=== PATIENT | male | born 1995 | race Caucasian/White ===

== ENCOUNTER 2017-06-20 12:05 | Emergency (ER) | payer OTHER ==
[2017-06-20 12:09] VITALS: BP 143/70; PULSE 77; RESP 20; TEMP 97.2
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
== END 2017-06-20 12:52 | disposition home or self-care (01) ==
LOC: EC 12:05
DX: S46.911A Strain of unspecified muscle, fascia and tendon at shoulder and upper arm level, right arm, initial encounter (principal); F17.200 Nicotine dependence, unspecified, uncomplicated; V43.52XA Car driver injured in collision with other type car in traffic accident, initial encounter; Y92.410 Unspecified street and highway as the place of occurrence of the external cause
CPT/HCPCS: 99283

== ENCOUNTER 2020-11-13 21:35 | Emergency (ER) | payer OTHER ==
[2020-11-13 21:45] VITALS: BP 138/83; PULSE 118; RESP 20; TEMP 98.1
[2020-11-13] MEDS ORDERED: IBUPROFEN ORAL SUSP 100 MG/5 ML CUP PO ONE (21:57)
[2020-11-13] MEDS ORDERED: ACETAMINOPHEN ORAL SUSP 160 MG/5 ML CUP PO ONE (21:57)
[2020-11-13] MEDS ORDERED: DEXAMETHASONE SOD PHOSPHATE 10 MG/ML 1 ML VIAL IM STA (21:57)
[2020-11-13] MEDS ORDERED: AMOXIC-POT CLAV 875MG STARTER PACK 2 TAB BTL PO STA (23:02)
[2020-11-13] MEDS ORDERED: AMOXIC-POT CLAV 875-125MG 1 EACH TAB PO STA (23:02)
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
== END 2020-11-13 23:16 | disposition other institution (70) ==
LOC: EC 21:35
DX: J02.9 Acute pharyngitis, unspecified (principal); F17.200 Nicotine dependence, unspecified, uncomplicated; F12.90 Cannabis use, unspecified, uncomplicated; F14.90 Cocaine use, unspecified, uncomplicated
CPT/HCPCS: 87081; 87430; 99284; 96372; J1100

== ENCOUNTER 2021-02-16 15:21 | Emergency (ER) | payer OTHER ==
[2021-02-16 15:37] VITALS: BP 149/97; PULSE 81; RESP 17; TEMP 98.2
[2021-02-16] MEDS ORDERED: BACITRACIN OINT 1 EACH PACKET TOPICAL ONE (15:53)
[2021-02-16] MEDS ORDERED: DIPH,PERTUS(ACELL)TETVAC-LF 0.5 ML VIAL IM ONE (15:53)
[2021-02-16] MEDS ORDERED: LIDOCAINE 1% INJ 10MG/ML (20 ML MDV) SQ ONE (15:53)
--- NOTE | 2021-02-16 16:36 | ED ---
Wound/Laceration HPI - General Chief Complaint: Wound/Laceration Stated Complaint: Hand lac Time Seen by Provider: 02/16/21 15:51 Source: patient Mode of arrival: ambulatory Limitations: no limitations - History of Present Illness Initial Comments: Patient is a 25-year-old male presenting to the emergency Department with complaints of a laceration to his left hand. Patient states he was working on siding of a house with a tool he was using accidentally cut him between the webspace of his first and second finger on the left hand. He states his tetanus is not up-to-date. He is not on blood thinners. Bleeding is controlled with a bandage. This happened about an hour prior to arrival. There are no further complaints. - Related Data Previous Rx's Medication Instructions Recorded Amoxic-Pot Clav 875-125Mg 1 tab PO Q12HR #14 tablet 11/13/20 [Augmentin 875-125] Allergies Allergy/AdvReac Type Severity Reaction Status Date / Time No Known Allergies Allergy Verified 02/16/21 15:37 Review of Systems ROS Statement: Those systems with pertinent positive or pertinent negative responses have been documented in the HPI. ROS Other: All systems not noted in ROS Statement are negative. Past Medical History Past Medical History: No Reported History History of Any Multi-Drug Resistant Organisms: None Reported Past Surgical History: Tonsillectomy Past Psychological History: No Psychological Hx Reported Smoking Status: Current every day smoker Past Alcohol Use History: Rare Past Drug Use History: Cocaine, Marijuana General Exam - General Exam Comments Initial Comments: GENERAL: Patient is well-developed and well-nourished. Patient is nontoxic and in no acute distress. HEAD: Atraumatic, normocephalic. LUNGS: Unlabored respirations. Breath sounds clear to auscultation bilaterally and equal. No wheezes rales or rhonchi. HEART: Regular rate and rhythm without murmurs, rubs or gallops. MUSCULOSKELETAL: She has full range of motion of his left hand and fingers, full strength. No clubbing or cyanosis. NEUROLOGICAL: Patient is alert and oriented x 3. SKIN: Warm, Dry, normal turgor, no rashes. He has a 1 cm laceration to the webspace between the first and second digit on the left hand. Bleeding is controlled. Limitations: no limitations Course Vital Signs 02/16/21 15:33 Temperature 98.2 F Pulse Rate 81 Respiratory 17 Rate Blood Pressure 149/97 O2 Sat by Pulse 98 Oximetry Procedures - Laceration Laceration #1 Consent Obtained: verbal consent Indication: laceration Site: hand (Left hand, in between first and second digits webspace) Size (cm): 1 Description: linear Depth: simple, single layer Anesthetic Used: lidocaine 1% Anesthesia Technique: local infiltration Amount (mls): 2 Pre-repair: irrigated extensively Type of Sutures: nylon Size of Sutures: 5-0 Number of Sutures: 3 Technique: simple, interrupted Patient Tolerated Procedure: well Medical Decision Making - Medical Decision Making Patient is a 25-year-old male here with a 1 cm laceration between the web spaces first and second digit on the left hand. We did update his tetanus vaccine today. Patient's wound was cleaned, closed with 3, 5-0 sutures. He tolerated procedure well. He will keep area clean and dry. Stitches need to be removed in 7-10 days. He is in agreement with this plan of care. Case discussed with Dr. Byrd. Disposition Clinical Impression: Laceration of left hand, Laceration Disposition: HOME SELF-CARE Condition: Stable Instructions (If sedation given, give patient instructions): Care For Your Stitches (ED) Additional Instructions: Please return to the Emergency Department if symptoms worsen or any other concerns. Stitches need to be removed in 7-10 days. Keep area covered while working. Is patient prescribed a controlled substance at d/c from ED?: No Referrals: None,Stated [Primary Care Provider] - 1-2 days Time of Disposition: 16:36
== END 2021-02-16 16:44 | disposition home or self-care (01) ==
LOC: EC 15:21
DX: S61.412A Laceration without foreign body of left hand, initial encounter (principal); Z23 Encounter for immunization; F12.90 Cannabis use, unspecified, uncomplicated; F14.90 Cocaine use, unspecified, uncomplicated; W26.8XXA Contact with other sharp object(s), not elsewhere classified, initial encounter; Y92.009 Unspecified place in unspecified non-institutional (private) residence as the place of occurrence of the external cause
CPT/HCPCS: 90715; 99282; 90471; 12001; J2001; 11765

== ENCOUNTER 2021-08-30 23:40 | Emergency (ER) | payer OTHER ==
[2021-08-31 00:25] VITALS: BP 146/85; PULSE 75; RESP 16; TEMP 98
[2021-08-31] MEDS ORDERED: TOPICAL SKIN ADHESIVE 1 EACH AMP TOPICAL ONE (01:13)
--- NOTE | 2021-08-31 01:25 | ED ---
Wound/Laceration HPI - General Stated Complaint: Rt Hand Laceration Time Seen by Provider: 08/31/21 01:07 Source: patient Mode of arrival: ambulatory Limitations: no limitations - History of Present Illness Initial Comments: This is a pleasant 26-year-old right-hand dominant male presents immersed After lacerating his right hand on the lid of a dog food can. Patient states he is up-to-date on tetanus. Injury occurred just prior to arrival. He denies any functional impairment. Patient denies any other injuries. No distress or proximal injuries. No distress or proximal numbness. No foreign body. Patient has no significant past medical history. Denies immunosuppression. - Related Data Previous Rx's Medication Instructions Recorded Amoxic-Pot Clav 875-125Mg 1 tab PO Q12HR #14 tablet 11/13/20 [Augmentin 875-125] Penicillin V Potassium [Pen Vee K] 500 mg PO QID #28 tablet 08/31/21 Allergies Allergy/AdvReac Type Severity Reaction Status Date / Time No Known Allergies Allergy Verified 08/31/21 00:25 Review of Systems ROS Statement: Those systems with pertinent positive or pertinent negative responses have been documented in the HPI. ROS Other: All systems not noted in ROS Statement are negative. Past Medical History Past Medical History: No Reported History History of Any Multi-Drug Resistant Organisms: None Reported Past Surgical History: Tonsillectomy Past Psychological History: No Psychological Hx Reported Smoking Status: Current every day smoker Past Alcohol Use History: Rare Past Drug Use History: Cocaine, Marijuana General Exam - General Exam Comments Initial Comments: Healthy-appearing male in no acute distress. Limitations: no limitations Head exam: Present: atraumatic, normocephalic, normal inspection Eye exam: Present: normal appearance, EOMI ENT exam: Present: normal exam, mucous membranes moist, other (Patient has mild erythema adjacent to tooth #17. No evidence of dental abscess. Airway is patent otherwise. No tonsillar abscess. No intraoral cellulitis. No trismus. No tongue elevation.) Neck exam: Present: normal inspection. Absent: tenderness, meningismus, lymphadenopathy Respiratory exam: Present: normal lung sounds bilaterally. Absent: respiratory distress, wheezes, rales, rhonchi, stridor Cardiovascular Exam: Present: regular rate, normal rhythm, normal heart sounds. Absent: systolic murmur, diastolic murmur, rubs, gallop, clicks Extremities exam: Present: full ROM, normal capillary refill, other (Patient has a 2 cm, superficial flap-like laceration to the palmar aspect of his right hand. No foreign body. This extends just into the subcutaneous tissue. There is no control impairment. Full tendon strength in all tendons in all planes. Full strength in all phalanges, hand, and wrist. ). Absent: tenderness, pedal edema, joint swelling Neurological exam: Present: alert, oriented X3, CN II-XII intact Psychiatric exam: Present: normal affect, normal mood Skin exam: Present: warm, dry, normal color, other (Capillary refill less than 2 seconds. Radial pulses 2+ out of 4.). Absent: rash Course Vital Signs 08/31/21 00:18 Temperature 98.0 F Pulse Rate 75 Respiratory 16 Rate Blood Pressure 146/85 O2 Sat by Pulse 95 Oximetry Procedures - Laceration Laceration #1 Indication: laceration Site: hand Size (cm): 2 Description: linear Depth: simple, single layer Pre-repair: wound explored, irrigated extensively, deep structures intact Type of Sutures: other (Tissue adhesive) Technique: simple, interrupted Patient Tolerated Procedure: well, no complications Medical Decision Making - Medical Decision Making Counseled on wound care. Counseled on adhesive instructions. Counseled on return from fabrics. Patient states she also has a toothache. We will cover with antibiotics for dental pain and prophylaxis. Patient told to follow-up with the dentist. Counseled on smoking cessation. Patient was told to return to the ER for any signs or symptoms worsen. Told to return immediately if any other problems arise. All questions answered. Treatment plan discussed. Patient in agreement No imaging was indicated as to what could be inspected to its without difficulty. There was no foreign body. Disposition Clinical Impression: Laceration of right hand, Pain, dental Disposition: HOME SELF-CARE Condition: Good Instructions (If sedation given, give patient instructions): Skin Adhesive Care (ED), Toothache (ED) Additional Instructions: Follow-up with your regular physician as directed. Return to the ER immediately if any symptoms worsen, new symptoms arise, or any other problems develop. Prescriptions: Penicillin V Potassium [Pen Vee K] 500 mg PO QID #28 tablet Is patient prescribed a controlled substance at d/c from ED?: No Referrals: None,Stated [Primary Care Provider] - 1-2 days Time of Disposition: 01:16
== END 2021-08-31 01:34 | disposition home or self-care (01) ==
LOC: EC 23:40
DX: S61.411A Laceration without foreign body of right hand, initial encounter (principal); K08.89 Other specified disorders of teeth and supporting structures; F17.200 Nicotine dependence, unspecified, uncomplicated; F12.90 Cannabis use, unspecified, uncomplicated; W26.8XXA Contact with other sharp object(s), not elsewhere classified, initial encounter
CPT/HCPCS: 12001; 99282

== ENCOUNTER 2021-11-28 22:40 | Emergency (ER) | payer OTHER ==
[2021-11-28] MEDS ORDERED: SODIUM CHLORIDE 0.9% 1,000 ML IV STA (23:03)
[2021-11-28] MEDS ORDERED: PANTOPRAZOLE 40 MG/10 ML VIAL IVP STA (23:03)
[2021-11-28] MEDS ORDERED: PROCHLORPERAZINE INJ 10 MG/2 ML VIAL IVP STA (23:03)
[2021-11-28] MEDS ORDERED: LORazepam 2 MG/ML INJ IV STA (23:03)
--- NOTE | 2021-11-28 23:04 | ED ---
Overdose HPI - General Stated Complaint: Overdose Time Seen by Provider: 11/28/21 22:54 Source: RN notes reviewed, old records reviewed Limitations: no limitations - History of Present Illness Initial Comments: Is a 26-year-old male. He is today for evaluation overdose this is what he believes maybe a hair 1+ fentanyl overdose he does have a history of heroin abuse for about 8 months now occasionally uses cocaine but has not used cocaine recently. Patient's presenting today for evaluation regards to overdose which at this point was witnessed by family who called EMS. Patient did not lose also became significantly somnolent did require Narcan per EMS patient was given Narcan currently awake and alert. Patient denying any other complaints maybe a little current anxiety. MD Complaint: accidental overdose (Patient was using heroin) -: minutes(s) Intent: unwilling to say How Overdose Was Discovered: family/friend present at time, called 911 Context: Intentional Overdose: drug/ETOH problems Context: Accidental Overdose: wanted to get high Treatments Prior to Arrival: narcan, IV fluids, other medications - Related Data Previous Rx's Medication Instructions Recorded Amoxic-Pot Clav 875-125Mg 1 tab PO Q12HR #14 tablet 11/13/20 [Augmentin 875-125] Penicillin V Potassium [Pen Vee K] 500 mg PO QID #28 tablet 08/31/21 Allergies Allergy/AdvReac Type Severity Reaction Status Date / Time No Known Allergies Allergy Verified 08/31/21 00:25 Review of Systems ROS Statement: Those systems with pertinent positive or pertinent negative responses have been documented in the HPI. ROS Other: All systems not noted in ROS Statement are negative. Past Medical History Past Medical History: No Reported History History of Any Multi-Drug Resistant Organisms: None Reported Past Surgical History: Tonsillectomy Past Psychological History: No Psychological Hx Reported Smoking Status: Current every day smoker Past Alcohol Use History: Rare Past Drug Use History: Cocaine, Marijuana General Exam General appearance: alert, in no apparent distress Head exam: Present: atraumatic, normocephalic, normal inspection Eye exam: Present: normal appearance, PERRL, EOMI. Absent: scleral icterus, con junctival injection, periorbital swelling ENT exam: Present: normal exam, mucous membranes moist Neck exam: Present: normal inspection. Absent: tenderness, meningismus, lymphadenopathy Respiratory exam: Present: normal lung sounds bilaterally. Absent: respiratory distress, wheezes, rales, rhonchi, stridor Cardiovascular Exam: Present: regular rate, normal rhythm, normal heart sounds. Absent: systolic murmur, diastolic murmur, rubs, gallop, clicks GI/Abdominal exam: Present: soft, normal bowel sounds. Absent: distended, tenderness, guarding, rebound, rigid Extremities exam: Present: normal inspection, full ROM, normal capillary refill. Absent: tenderness, pedal edema, joint swelling, calf tenderness Back exam: Present: normal inspection Neurological exam: Present: alert, oriented X3, CN II-XII intact Psychiatric exam: Present: normal affect, normal mood Skin exam: Present: warm, dry, intact, normal color. Absent: rash Course Vital Signs 11/28/21 22:43 Pulse Rate 93 Respiratory 20 Rate Blood Pressure 131/92 O2 Sat by Pulse 95 Oximetry - Reevaluation(s) Reevaluation #1: 11/28/21 23:10 Medical record is reviewed Reevaluation #2: 11/28/21 23:48 Patient has no recurrent rebound Reevaluation #3: 11/28/21 23:48 Patient is awake and alert without significant findings Medical Decision Making - Medical Decision Making 26 male to the emergency department for evaluation patient currently awake and alert, not homicidal or suicidal can be discharged home - EKG Data -: EKG Interpreted by Me (EKG is sinus rhythm 95 FL 155 QRS 97 QTc 416) Disposition Clinical Impression: Accidental drug overdose, Poisoning by opiates and related narcotics, other Disposition: HOME SELF-CARE Condition: Fair Instructions (If sedation given, give patient instructions): Adult Overdose (ED) Is patient prescribed a controlled substance at d/c from ED?: No Referrals: None,Stated [Primary Care Provider] - 1-2 days
[2021-11-29 01:28] VITALS: BP 138/69; PULSE 87; RESP 18; TEMP 97.9
== END 2021-11-29 01:27 | disposition home or self-care (01) ==
LOC: EC 22:40
DX: T40.1X1A Poisoning by heroin, accidental (unintentional), initial encounter (principal); T40.601A Poisoning by unspecified narcotics, accidental (unintentional), initial encounter; F17.200 Nicotine dependence, unspecified, uncomplicated; F14.90 Cocaine use, unspecified, uncomplicated; F12.90 Cannabis use, unspecified, uncomplicated
CPT/HCPCS: 93005; 99284; 96374; 96375 ×2; 96361; J2060; J0780; C9113

== ENCOUNTER 2023-01-10 02:15 | Emergency (ER) | payer OTHER ==
[2023-01-10 02:30] VITALS: RESP 18
[2023-01-10] MEDS ORDERED: KETOROLAC 15 MG/ML 1 ML VIAL IVP STA (02:58)
[2023-01-10] MEDS ORDERED: ONDANSETRON 4 MG/2 ML VIAL IVP STA (02:58)
[2023-01-10] MEDS ORDERED: AMOXIC-POT CLAV 875-125MG 1 EACH TAB PO STA (03:26)
--- NOTE | 2023-01-10 04:06 | ED ---
Overdose HPI - General Chief Complaint: Overdose Stated Complaint: Overdose Time Seen by Provider: 01/10/23 02:36 Source: patient Mode of arrival: ambulatory Limitations: no limitations - History of Present Illness Initial Comments: 27-year-old male presents to emergency department for heroin overdose. He states he used a small amount. Only uses a few times per month. He was found unresponsive by his mom. 3 intranasal Narcan's were administered by his brother, each 2 minutes apart. Patient was attempting to sign off on scene however it was recommended that he be evaluated due to the amount of Narcan that he had to of been given. Patient states that he was using heroin to numb a pain in his tooth. States he's been dealing with toothache for the past several weeks. Denies fevers. No difficulty swelling. Patient does have some vomiting upon hospital arrival. He denies using any other drugs. No alcohol. No other alleviating, precipitating modifying factors - Related Data Previous Rx's Medication Instructions Recorded Amoxic-Pot Clav 875-125Mg 1 tab PO Q12HR #14 tablet 11/13/20 [Augmentin 875-125] Penicillin V Potassium [Pen Vee K] 500 mg PO QID #28 tablet 08/31/21 Amoxic-Pot Clav 875-125Mg 1 tab PO BID 1 Days #20 tab 01/10/23 [Augmentin 875-125] Ibuprofen 600 mg PO Q6H #30 tab 01/10/23 Allergies Allergy/AdvReac Type Severity Reaction Status Date / Time No Known Allergies Allergy Verified 01/10/23 02:30 Review of Systems ROS Statement: Those systems with pertinent positive or pertinent negative responses have been documented in the HPI. ROS Other: All systems not noted in ROS Statement are negative. Past Medical History Past Medical History: No Reported History History of Any Multi-Drug Resistant Organisms: None Reported Past Surgical History: Tonsillectomy Past Psychological History: No Psychological Hx Reported Smoking Status: Current every day smoker Past Alcohol Use History: Rare Past Drug Use History: Cocaine, Heroin, Marijuana General Exam Limitations: no limitations General appearance: alert, in no apparent distress Head exam: Present: atraumatic, normocephalic, normal inspection Eye exam: Present: normal appearance, PERRL, EOMI. Absent: scleral icterus, conjunctival injection, periorbital swelling ENT exam: Present: normal exam, mucous membranes moist Neck exam: Present: normal inspection. Absent: tenderness, meningismus, lymphadenopathy Respiratory exam: Present: normal lung sounds bilaterally. Absent: respiratory distress, wheezes, rales, rhonchi, stridor Cardiovascular Exam: Present: regular rate, normal rhythm, normal heart sounds. Absent: systolic murmur, diastolic murmur, rubs, gallop, clicks GI/Abdominal exam: Present: soft, normal bowel sounds. Absent: distended, tenderness, guarding, rebound, rigid Extremities exam: Present: normal inspection, full ROM, normal capillary refill. Absent: tenderness, pedal edema, joint swelling, calf tenderness Back exam: Present: normal inspection Neurological exam: Present: alert, oriented X3, CN II-XII intact Psychiatric exam: Present: normal affect, normal mood Skin exam: Present: warm, dry, intact, normal color. Absent: rash Course Vital Signs 01/10/23 01/10/23 02:27 04:10 Temperature 98.2 F 97.9 F Pulse Rate 104 H 79 Respiratory 18 18 Rate Blood Pressure 154/109 129/78 O2 Sat by Pulse 100 98 Oximetry Medical Decision Making - Medical Decision Making Was pt. sent in by a medical professional or institution (, PA, HAM MARKER, urgent care, hospital, or shelter...) When possible be specific @ -No Did you speak to anyone other than the patient for history (EMS, parent, family, police, friend...)? What history was obtained from this source @ -EMS, brother Did you review nursing and triage notes (agree or disagree)? Why? @ -I reviewed and agree with nursing and triage notes Were old charts reviewed (outside hosp., previous admission, EMS record, old EKG, old radiological studies, urgent care reports/EKG's, shelter records)? Report findings @ -No old charts were reviewed Differential Diagnosis (chest pain, altered mental status, abdominal pain women, abdominal pain men, vaginal bleeding, weakness, fever, dyspnea, syncope, headache, dizziness, GI bleed, back pain, seizure, CVA, palpatations, mental health, musculoskeletal)? @ -opiate overdose, suicidal attempt, alcohol intoxication, aspiration EKG interpreted by me (3pts min.). @ -not done X-rays interpreted by me (1pt min.). @ -not done CT interpreted by me (1pt min.). @ -None done U/S interpreted by me (1pt. min.). @ -None done What testing was considered but not performed or refused? (CT, X-rays, U/S, labs)? Why? @ -None What meds were considered but not given or refused? Why? @ -None Did you discuss the management of the patient with other professionals (professionals i.e. Dr., PA, HAM MARKER, lab, RT, psych nurse, social service worker, plumber's assistant, teacher, [place] police officer, lead case manager)? Give summary @ -No Was smoking cessation discussed for >3mins.? @ -No Was critical care preformed (if so, how long)? @ -No Were there social determinants of health that impacted care today? How? (Homelessness, low income, unemployed, alcoholism, drug addiction, transportation, low edu. Level, literacy, decrease access to med. care, group home, rehab)? @ -No Was there de-escalation of care discussed even if they declined (Discuss DNR or withdrawal of care, Hospice)? DNR status @ -No What co-morbidities impacted this encounter? (DM, HTN, Smoking, COPD, CAD, Cancer, CVA, ARF, Chemo, Hep., AIDS, mental health diagnosis, sleep apnea, morbid obesity)? @ -None Was patient admitted / discharged? Hospital course, mention meds given and route, prescriptions, significant lab abnormalities, going to OR and other pertinent info. @ -Upon arrival patient was placed into room 11. He is observed for 2 hours. Patient has no decrease in mentation. He was given 4 of Zofran for his nausea and dose of Augmentin for his tooth pain. Instructed to follow up with a dentist. Return for any new or worsening symptoms. Patient discharged in stable condition Undiagnosed new problem with uncertain prognosis? @ -No Drug Therapy requiring intensive monitoring for toxicity (Heparin, Nitro, Insulin, Cardizem)? @ -No Were any procedures done? @ -No Diagnosis/symptom? @ -acute accidental opiate overdose, acute dentalgia Acute, or Chronic, or Acute on Chronic? @ -acute Uncomplicated (without systemic symptoms) or Complicated (systemic symptoms)? @ -complicated Side effects of treatment? @ -No Exacerbation, Progression, or Severe Exacerbation? @ -No Poses a threat to life or bodily function? How? (Chest pain, [place], [place], pneumonia, PE, COPD, DKA, ARF, appy, cholecystitis, CVA, Diverticulitis, Homicidal, Suicidal, threat to staff... and all critical care pts) @ -Yes. patient could have went into respiratory arrest and Disposition Clinical Impression: Heroin overdose, Dentalgia Disposition: HOME SELF-CARE Condition: Stable Instructions (If sedation given, give patient instructions): Adult Overdose (ED) Additional Instructions: Recommend that you stop using heroin. Take the antibiotic for your toothache. Follow up with the dentist for further care and return for any new or worsening symptoms Prescriptions: Amoxic-Pot Clav 875-125Mg [Augmentin 875-125] 1 tab PO BID 1 Days #20 tab Ibuprofen 600 mg PO Q6H #30 tab Is patient prescribed a controlled substance at d/c from ED?: No Referrals: None,Stated [Primary Care Provider] - 1-2 days Time of Disposition: 04:05
[2023-01-10 04:11] VITALS: BP 129/78; PULSE 79; TEMP 97.9
== END 2023-01-10 04:11 | disposition home or self-care (01) ==
LOC: EC 02:15
DX: T40.1X1A Poisoning by heroin, accidental (unintentional), initial encounter (principal); K08.89 Other specified disorders of teeth and supporting structures; F17.200 Nicotine dependence, unspecified, uncomplicated; F12.90 Cannabis use, unspecified, uncomplicated; F14.90 Cocaine use, unspecified, uncomplicated
CPT/HCPCS: 99284; 96374; 96375; J2405; J1885

== ENCOUNTER 2023-07-29 11:43 | Emergency (ER) | payer OTHER ==
--- NOTE | 2023-07-29 12:02 | ED ---
General Adult HPI - General Source: patient, RN notes reviewed Mode of arrival: ambulatory Limitations: no limitations - History of Present Illness MD Complaint: Dental pain <Natalie Castro - Last Filed: 07/29/23 11:55> - General Source: patient, RN notes reviewed Mode of arrival: ambulatory Limitations: no limitations <Milan Garcia - Last Filed: 07/29/23 14:13> - General Chief complaint: Dental/Oral Stated complaint: dental pain Time Seen by Provider: 07/29/23 11:56 - History of Present Illness Initial comments: This is a 28 year old male who presents to the emergency department for right sided dental pain. States that this started 3 days ago. He has a hx of dental infections in the past. He is taking over the counter Aleve with no relief in symptoms. Denies any fevers/chills. (Natalie Castro) - Related Data Previous Rx's Medication Instructions Recorded Amoxic-Pot Clav 875-125Mg 1 tab PO Q12HR #14 tablet 11/13/20 [Augmentin 875-125] Penicillin V Potassium [Pen Vee K] 500 mg PO QID #28 tablet 08/31/21 Amoxic-Pot Clav 875-125Mg 1 tab PO BID 1 Days #20 tab 01/10/23 [Augmentin 875-125] Ibuprofen 600 mg PO Q6H #30 tab 01/10/23 Amoxic-Pot Clav 875-125Mg 1 tab PO Q12HR #20 tab 07/29/23 [Augmentin 875-125] Amoxic-Pot Clav 875-125Mg 1 tab PO Q12HR #20 tab 07/29/23 [Augmentin 875-125] Ibuprofen [Motrin] 600 mg PO Q8HR PRN #20 tab 07/29/23 Ibuprofen [Motrin] 600 mg PO Q8HR PRN #20 tab 07/29/23 Allergies Allergy/AdvReac Type Severity Reaction Status Date / Time No Known Allergies Allergy Verified 07/29/23 12:30 Review of Systems ROS Other: All systems not noted in ROS Statement are negative. <Natalie Castro - Last Filed: 07/29/23 11:55> ROS Other: All systems not noted in ROS Statement are negative. <Milan Garcia - Last Filed: 07/29/23 14:13> ROS Statement: Those systems with pertinent positive or pertinent negative responses have been documented in the HPI. Past Medical History Past Medical History: No Reported History History of Any Multi-Drug Resistant Organisms: None Reported Past Surgical History: Tonsillectomy Past Psychological History: No Psychological Hx Reported Smoking Status: Current every day smoker Past Alcohol Use History: Rare Past Drug Use History: Cocaine, Heroin, Marijuana <Natalie Castro - Last Filed: 07/29/23 11:55> General Exam <Natalie Castro - Last Filed: 07/29/23 11:55> Limitations: no limitations General appearance: alert, in no apparent distress Head exam: Present: atraumatic, normocephalic, normal inspection Eye exam: Present: normal appearance, PERRL, EOMI. Absent: scleral icterus, conjunctival injection, periorbital swelling ENT exam: Present: mucous membranes moist, TM's normal bilaterally, normal external ear exam. Absent: normal oropharynx (Edentulous, no drainable abscess) Neck exam: Present: normal inspection. Absent: tenderness, meningismus, lymphadenopathy Respiratory exam: Present: normal lung sounds bilaterally. Absent: respiratory distress, wheezes, rales, rhonchi, stridor <Milan Garcia - Last Filed: 07/29/23 14:13> - General Exam Comments Initial Comments: Visual Physical Exam Vital signs reviewed General: Well-appearing, nontoxic, no acute distress. Head: Normocephalic, atraumatic Eyes: PERRLA, EOMI ENT: Airway patent Chest: Nonlabored breathing Skin: No visual rash, normal skin tone Neuro: Alert and oriented 3 Musculoskeletal: No gross abnormalities (Natalie Castro) Course Vital Signs 07/29/23 07/29/23 12:28 12:58 Temperature 98.8 F Pulse Rate 89 80 Respiratory 15 18 Rate Blood Pressure 143/74 146/79 O2 Sat by Pulse 97 100 Oximetry Medical Decision Making <Natalie Castro - Last Filed: 07/29/23 11:55> <Milan Garcia - Last Filed: 07/29/23 14:13> - Medical Decision Making I performed the QuickNote portion of this chart. Signed Natalie Castro PA-C. (Natalie Castro) Was pt. sent in by a medical professional or institution ([facility], FRONT OFFICE SPEC, urgent care, hospital, or [facility]...) When possible be specific @ -No Did you speak to anyone other than the patient for history (EMS, parent, family, police, friend...)? What history was obtained from this source @ -No Did you review nursing and triage notes (agree or disagree)? Why? @ -I reviewed and agree with nursing and triage notes Were old charts reviewed (outside hosp., previous admission, EMS record, old EKG, old radiological studies, urgent care reports/EKG's, [facility] records)? Report findings @ -No old charts were reviewed Differential Diagnosis (chest pain, altered mental status, abdominal pain women, abdominal pain men, vaginal bleeding, weakness, fever, dyspnea, syncope, headache, dizziness, GI bleed, back pain, seizure, CVA, palpatations, mental health, musculoskeletal)? @ -[Dental infection, dental abscess, EKG interpreted by me (3pts min.). @ -None X-rays interpreted by me (1pt min.). @ -None done CT interpreted by me (1pt min.). @ -None done U/S interpreted by me (1pt. min.). @ -None done What testing was considered but not performed or refused? (CT, X-rays, U/S, labs)? Why? @ -None What meds were considered but not given or refused? Why? @ -None Did you discuss the management of the patient with other professionals (professionals i.e. [facility], FRONT OFFICE SPEC, lab, RT, psych nurse, social sciences chair, wool hanker, teacher, chief green officer, rn case manager)? Give summary @ -No Was smoking cessation discussed for >3mins.? @ -No Was critical care preformed (if so, how long)? @ -No Were there social determinants of health that impacted care today? How? (Homelessness, low income, unemployed, alcoholism, drug addiction, transportation, low edu. Level, literacy, decrease access to med. care, [facility], rehab)? @ -No Was there de-escalation of care discussed even if they declined (Discuss DNR or withdrawal of care, Hospice)? DNR status @ -No What co-morbidities impacted this encounter? (DM, HTN, Smoking, COPD, CAD, Ca ncer, CVA, ARF, Chemo, Hep., AIDS, mental health diagnosis, sleep apnea, morbid obesity)? @ -None Was patient admitted / discharged? Hospital course, mention meds given and route, prescriptions, significant lab abnormalities, going to OR and other pertinent info. @ -[Discharge patient has dental infection, dental caries central erosion. Ar duvall has no drainable abscess was started on Augmentin. Undiagnosed new problem with uncertain prognosis? @ -No Drug Therapy requiring intensive monitoring for toxicity (Heparin, Nitro, Insulin, Cardizem)? @ -No Were any procedures done? @ -No Diagnosis/symptom? @ -[Dental infection Acute, or Chronic, or Acute on Chronic? @ -Acute Uncomplicated (without systemic symptoms) or Complicated (systemic symptoms)? @ -Uncomplicated Side effects of treatment? @ -No Exacerbation, Progression, or Severe Exacerbation? @ -No Poses a threat to life or bodily function? How? (Chest pain, [place], [place], pneumonia, PE, COPD, DKA, ARF, appy, cholecystitis, CVA, Diverticulitis, Homicidal, Suici pattie, threat to staff... and all critical care pts) @ -No (Milan Garcia) Disposition <Natalie Castro - Last Filed: 07/29/23 11:55> Is patient prescribed a controlled substance at d/c from ED?: No Time of Disposition: 12:37 <Milan Garcia - Last Filed: 07/29/23 14:13> Clinical Impression: Fracture of tooth, Toothache, Dental infection Disposition: HOME SELF-CARE Condition: Stable Instructions (If sedation given, give patient instructions): Dental Abscess (ED) Additional Instructions: Please return to the Emergency Department if symptoms worsen or any other concerns. Prescriptions: Amoxic-Pot Clav 875-125Mg [Augmentin 875-125] 1 tab PO Q12HR #20 tab Amoxic-Pot Clav 875-125Mg [Augmentin 875-125] 1 tab PO Q12HR #20 tab Ibuprofen [Motrin] 600 mg PO Q8HR PRN #20 tab PRN Reason: Pain Ibuprofen [Motrin] 600 mg PO Q8HR PRN #20 tab PRN Reason: Pain Referrals: None,Stated [Primary Care Provider] - 1-2 days
[2023-07-29 12:43] VITALS: TEMP 98.8
[2023-07-29 13:08] VITALS: BP 146/79; PULSE 80; RESP 18
== END 2023-07-29 12:58 | disposition home or self-care (01) ==
LOC: EC 11:43
DX: K03.81 Cracked tooth (principal); F17.200 Nicotine dependence, unspecified, uncomplicated; F14.90 Cocaine use, unspecified, uncomplicated; F12.90 Cannabis use, unspecified, uncomplicated; F15.90 Other stimulant use, unspecified, uncomplicated
CPT/HCPCS: 99282

== ENCOUNTER 2024-01-19 06:28 | Emergency (ER) | payer OTHER ==
[2024-01-19 06:41] VITALS: RESP 18; TEMP 97.9
--- NOTE | 2024-01-19 06:52 | ED ---
Psych HPI - General Chief Complaint: Psychiatric Symptoms Stated Complaint: Behavioral Psych Time Seen by Provider: 01/19/24 06:50 Source: patient, EMS Mode of arrival: EMS Limitations: no limitations - History of Present Illness Initial Comments: 28-year-old male presented to the ER via EMS for evaluation of heroin use. Patient states he relapsed last night as he is currently going through many life stressors. He states his last dose of heroin was approximately 2 hours ago. He went to the gas station to get a drink and was found by police stumbling down the street and they sent him to the hospital for evaluation. He denies any other drug use or alcohol use. Denies any SI/HI. Denies any hallucinations. Patient denies any current pain or complaints. - Related Data Previous Rx's Medication Instructions Recorded Amoxic-Pot Clav 875-125Mg 1 tab PO Q12HR #14 tablet 11/13/20 [Augmentin 875-125] Penicillin V Potassium [Pen Vee K] 500 mg PO QID #28 tablet 08/31/21 Amoxic-Pot Clav 875-125Mg 1 tab PO BID 1 Days #20 tab 01/10/23 [Augmentin 875-125] Ibuprofen 600 mg PO Q6H #30 tab 01/10/23 Amoxic-Pot Clav 875-125Mg 1 tab PO Q12HR #20 tab 07/29/23 [Augmentin 875-125] Amoxic-Pot Clav 875-125Mg 1 tab PO Q12HR #20 tab 07/29/23 [Augmentin 875-125] Ibuprofen [Motrin] 600 mg PO Q8HR PRN #20 tab 07/29/23 Ibuprofen [Motrin] 600 mg PO Q8HR PRN #20 tab 07/29/23 Allergies Allergy/AdvReac Type Severity Reaction Status Date / Time No Known Allergies Allergy Verified 01/19/24 06:41 Review of Systems ROS Statement: Those systems with pertinent positive or pertinent negative responses have been documented in the HPI. ROS Other: All systems not noted in ROS Statement are negative. Past Medical History Past Medical History: No Reported History History of Any Multi-Drug Resistant Organisms: None Reported Past Surgical History: Tonsillectomy Past Psychological History: No Psychological Hx Reported Smoking Status: Current every day smoker Past Alcohol Use History: Rare Past Drug Use History: Cocaine, Heroin, Marijuana General Exam Limitations: no limitations General appearance: alert, in no apparent distress, anxious Respiratory exam: Present: normal lung sounds bilaterally. Absent: respiratory distress, wheezes, rales, rhonchi, stridor Cardiovascular Exam: Present: normal rhythm, tachycardia, normal heart sounds GI/Abdominal exam: Present: soft, normal bowel sounds. Absent: distended, tenderness, guarding, rebound, rigid Extremities exam: Present: normal inspection, full ROM, normal capillary refill. Absent: tenderness, pedal edema, joint swelling, calf tenderness Psychiatric exam: Present: anxious Skin exam: Present: warm, dry, intact, normal color. Absent: rash Course Vital Signs 01/19/24 01/19/24 01/19/24 06:34 07:26 08:53 Temperature 97.9 F Pulse Rate 114 H 90 88 Respiratory 18 18 18 Rate Blood Pressure 159/113 112/77 O2 Sat by Pulse 99 98 Oximetry - Reevaluation(s) Reevaluation #1: 01/19/24 08:39 Patient reevaluated. Patient resting comfortably in exam room no signs of acute distress. Vital signs stable. Patient denying SI/HI. Patient eager for discharge. Medical Decision Making - Medical Decision Making Was pt. sent in by a medical professional or institution (, PA, POWER TRANSFORMER INSPECTOR, urgent care, hospital, or detention...) When possible be specific @ -No Did you speak to anyone other than the patient for history (EMS, parent, family, police, friend...)? What history was obtained from this source @ -No Did you review nursing and triage notes (agree or disagree)? Why? @ -I reviewed and agree with nursing and triage notes Were old charts reviewed (outside hosp., previous admission, EMS record, old EKG, old radiological studies, urgent care reports/EKG's, detention records)? Report findings @ -No old charts were reviewed Differential Diagnosis (chest pain, altered mental status, abdominal pain women, abdominal pain men, vaginal bleeding, weakness, fever, dyspnea, syncope, headache, dizziness, GI bleed, back pain, seizure, CVA, palpatations, mental health, musculoskeletal)? @ -Differential Mental Health: Depression, anxiety, bipolar, psychosis, schizophrenia, borderline personality, situational depression, adjustment disorder, behavioral disorder, brain tumor, malingering, substance abuse, encephalopathy, medication reaction, dementia, hypothyroidism, degenerative neurologic disorder, lupus.... This is not meant to be all-inclusive list EKG interpreted by me (3pts min.). @ -None X-rays interpreted by me (1pt min.). @ -None done CT interpreted by me (1pt min.). @ -None done U/S interpreted by me (1pt. min.). @ -None done What testing was considered but not performed or refused? (CT, X-rays, U/S, labs)? Why? @ -None What meds were considered but not given or refused? Why? @ -None Did you discuss the management of the patient with other professionals (professionals i.e. Dr., PA, POWER TRANSFORMER INSPECTOR, lab, RT, psych nurse, social and political studies professor, statistical geneticist, teacher, planned giving officer, case monitor)? Give summary @ -No Was smoking cessation discussed for >3mins.? @ -No Was critical care preformed (if so, how long)? @ -No Were there social determinants of health that impacted care today? How? (Homelessness, low income, unemployed, alcoholism, drug addiction, transportation, low edu. Level, literacy, decrease access to med. care, custodial, rehab)? @ -Drug addiction Was there de-escalation of care discussed even if they declined (Discuss DNR or withdrawal of care, Hospice)? DNR status @ -No What co-morbidities impacted this encounter? (DM, HTN, Smoking, COPD, CAD, Cancer, CVA, ARF, Chemo, Hep., AIDS, mental health diagnosis, sleep apnea, morb id obesity)? @ -Drug addiction Was patient admitted / discharged? Hospital course, mention meds given and route, prescriptions, significant lab abnormalities, going to OR and other pertinent info. @ -Discharge. 28-year-old male presented to the ER for evaluation of heroin use. He states he was sent here by police as he was found stumbling the streets. He states his last heroin use was approximately 2 hours prior to arrival. Vitals stable. Patient disheveled and unkept on exam. Patient is extremely anxious and crying. He denies suicidal ideation or homicidal ideation. Patient refusing EPS evaluation at this time. Patient monitored in the ER for approximately 2 hours and remained in stable condition throughout. Patient eager for discharge upon reevaluation. Patient stable for discharge at this time. Multiple community resources provided at discharge. Return parameters discussed. Patient discharged in stable condition. Patient verbally expressed understanding and agreement with care plan. Case discussed with ED attending, Dr. Eli. Undiagnosed new problem with uncertain prognosis? @ -No Drug Therapy requiring intensive monitoring for toxicity (Heparin, Nitro, Insuli n, Cardizem)? @ -No Were any procedures done? @ -No Diagnosis/symptom? @ -Heroin abuse Acute, or Chronic, or Acute on Chronic? @ -Acute Uncomplicated (without systemic symptoms) or Complicated (systemic symptoms)? @ -Complicated Side effects of treatment? @ -No Exacerbation, Progression, or Severe Exacerbation? @ -No Poses a threat to life or bodily function? How? (Chest pain, [place], [place], pneumonia, PE, COPD, DKA, ARF, appy, cholecystitis, CVA, Diverticulitis, Homicidal, Suicidal, threat to staff... and all critical care pts) @ -Yes can lead to overdose Disposition Clinical Impression: Heroin abuse, Opioid use disorder Disposition: HOME SELF-CARE Condition: Stable Instructions (If sedation given, give patient instructions): Opioid Safety (ED), Opioid Use Disorder (ED) Additional Instructions: Please stop using heroin. Follow-up with PCP. Return to the ER for any new or worsening symptoms. Is patient prescribed a controlled substance at d/c from ED?: No Referrals: None,Stated [Primary Care Provider] - 1-2 days Forms: Area PCPs, Outpatient Counseling, Outpatient Therapy List, Inp Substance Abuse Facilities, Community Resources, Who Do I Call? Time of Disposition: 08:47
[2024-01-19 08:53] VITALS: BP 112/77; PULSE 88
== END 2024-01-19 09:13 | disposition home or self-care (01) ==
LOC: EC 06:28
DX: F11.99 Opioid use, unspecified with unspecified opioid-induced disorder (principal); F17.200 Nicotine dependence, unspecified, uncomplicated; F12.90 Cannabis use, unspecified, uncomplicated
CPT/HCPCS: 82075; 99285

== ENCOUNTER 2024-09-30 15:20 | Emergency (ER) | payer OTHER ==
[2024-09-30 15:41] VITALS: BP 147/83; PULSE 76; RESP 18; TEMP 98.3
--- NOTE | 2024-09-30 15:54 | ED ---
ENT HPI - General Chief complaint: Dental/Oral Stated complaint: R side jaw swelling Time Seen by Provider: 09/30/24 15:42 Source: patient, RN notes reviewed Mode of arrival: ambulatory Limitations: no limitations - History of Present Illness Initial comments: 9-year-old male presents emergency room complaint of right lower dental pain, swelling. Patient states he has known bad tooth. Patient states started swelling did initially improve but worsened. No fevers or chills minimal pain at this time. - Related Data Previous Rx's Medication Instructions Recorded Amoxic-Pot Clav 875-125Mg 1 tab PO Q12HR #14 tablet 11/13/20 [Augmentin 875-125] Penicillin V Potassium [Pen Vee K] 500 mg PO QID #28 tablet 08/31/21 Amoxic-Pot Clav 875-125Mg 1 tab PO BID 1 Days #20 tab 01/10/23 [Augmentin 875-125] Ibuprofen 600 mg PO Q6H #30 tab 01/10/23 Amoxic-Pot Clav 875-125Mg 1 tab PO Q12HR #20 tab 07/29/23 [Augmentin 875-125] Amoxic-Pot Clav 875-125Mg 1 tab PO Q12HR #20 tab 07/29/23 [Augmentin 875-125] Ibuprofen [Motrin] 600 mg PO Q8HR PRN #20 tab 07/29/23 Ibuprofen [Motrin] 600 mg PO Q8HR PRN #20 tab 07/29/23 Amoxic-Pot Clav 875-125Mg 1 tab PO Q12HR #20 tab 09/30/24 [Augmentin 875-125] Ibuprofen [Motrin] 600 mg PO Q8HR PRN #20 tab 09/30/24 Allergies Allergy/AdvReac Type Severity Reaction Status Date / Time No Known Allergies Allergy Verified 09/30/24 15:41 Review of Systems ROS Statement: Those systems with pertinent positive or pertinent negative responses have been documented in the HPI. ROS Other: All systems not noted in ROS Statement are negative. Past Medical History Past Medical History: No Reported History History of Any Multi-Drug Resistant Organisms: None Reported Past Surgical History: Tonsillectomy Past Psychological History: No Psychological Hx Reported Smoking Status: Current every day smoker Past Alcohol Use History: Rare Past Drug Use History: Cocaine, Heroin, Marijuana General Exam Limitations: no limitations General appearance: alert, in no apparent distress Head exam: Present: atraumatic, normocephalic, normal inspection Eye exam: Present: normal appearance, PERRL, EOMI. Absent: scleral icterus, conjunctival injection, periorbital swelling ENT exam: Present: mucous membranes moist, TM's normal bilaterally, normal external ear exam. Absent: normal oropharynx (Dental fracture, no drainable abscess) Neck exam: Present: normal inspection, full ROM. Absent: tenderness, men ingismus, lymphadenopathy Respiratory exam: Present: normal lung sounds bilaterally. Absent: respiratory distress, wheezes, rales, rhonchi, stridor Cardiovascular Exam: Present: regular rate, normal rhythm, normal heart sounds. Absent: systolic murmur, diastolic murmur, rubs, gallop, clicks Course Vital Signs 09/30/24 15:39 Temperature 98.3 F Pulse Rate 76 Respiratory 18 Rate Blood Pressure 147/83 O2 Sat by Pulse 98 Oximetry Medical Decision Making - Medical Decision Making Was pt. sent in by a medical professional or institution (, PA, WEBMETHODS ARCHITECT, urgent care, hospital, or skilled nursing...) When possible be specific @ -No Did you speak to anyone other than the patient for history (EMS, parent, family, police, friend...)? What history was obtained from this source @ -No Did you review nursing and triage notes (agree or disagree)? Why? @ -I reviewed and agree with nursing and triage notes Were old charts reviewed (outside hosp., previous admission, EMS record, old EKG, old radiological studies, urgent care reports/EKG's, skilled nursing records)? Report findings @ -No old charts were reviewed Differential Diagnosis (chest pain, altered mental status, abdominal pain women, abdominal pain men, vaginal bleeding, weakness, fever, dyspnea, syncope, headache, dizziness, GI bleed, back pain, seizure, CVA, palpatations, mental health, musculoskeletal)? @Dental abscess dental infection impacted molar EKG interpreted by me (3pts min.). @ -None X-rays interpreted by me (1pt min.). @ -None done CT interpreted by me (1pt min.). @ -None done U/S interpreted by me (1pt. min.). @ -None done What testing was considered but not performed or refused? (CT, X-rays, U/S, labs)? Why? @ -None What meds were considered but not given or refused? Why? @ -None Did you discuss the management of the patient with other professionals ( professionals i.e. , PA, WEBMETHODS ARCHITECT, lab, RT, psych nurse, healthcare social worker, real estate lawyer, teacher, gunnery/ordnance officer, special education case manager)? Give summary @ -No Was smoking cessation discussed for >3mins.? @ -No Was critical care preformed (if so, how long)? @ -No Were there social determinants of health that impacted care today? How? (Homelessness, low income, unemployed, alcoholism, drug addiction, transportation, low edu. Level, literacy, decrease access to med. care, snf, rehab)? @ -No Was there de-escalation of care discussed even if they declined (Discuss DNR or withdrawal of care, Hospice)? DNR status @ -No What co-morbidities impacted this encounter? (DM, HTN, Smoking, COPD, CAD, Cancer, CVA, ARF, Chemo, Hep., AIDS, mental health diagnosis, sleep apnea, morbid obesity)? @ -None Was patient admitted / discharged? Hospital course, mention meds given and route, prescriptions, significant lab abnormalities, going to OR and other pertinent info. @ -Discharge patient had swelling dental infection and dental fracture probably early dental abscess started on Augmentin patient discharged in stable condition will follow-up. Undiagnosed new problem with uncertain prognosis? @ -No Drug Therapy requiring intensive monitoring for toxicity (Heparin, Nitro, Insulin, Cardizem)? @ -No Were any procedures done? @ -No Diagnosis/symptom? @ -[Dental infection Acute, or Chronic, or Acute on Chronic? @ -Acute Uncomplicated (without systemic symptoms) or Complicated (systemic symptoms)? @ -Uncomplicated Side effects of treatment? @ -No Exacerbation, Progression, or Severe Exacerbation? @ -No Poses a threat to life or bodily function? How? (Chest pain, [place], DC, pneumonia, PE, COPD, DKA, ARF, appy, cholecystitis, CVA, Diverticulitis, Homicidal, Suicidal, threat to staff... and all critical care pts) @ -No Disposition Clinical Impression: Toothache, Dental abscess Disposition: HOME SELF-CARE Condition: Stable Instructions (If sedation given, give patient instructions): Dental Abscess (ED) Additional Instructions: Please return to the Emergency Department if symptoms worsen or any other concerns. Prescriptions: Amoxic-Pot Clav 875-125Mg [Augmentin 875-125] 1 tab PO Q12HR #20 tab Ibuprofen [Motrin] 600 mg PO Q8HR PRN #20 tab PRN Reason: Pain Is patient prescribed a controlled substance at d/c from ED?: No Referrals: None,Stated [Primary Care Provider] - 1-2 days Time of Disposition: 15:54
== END 2024-09-30 18:58 | disposition home or self-care (01) ==
LOC: EC 15:20
DX: K04.7 Periapical abscess without sinus (principal); F17.200 Nicotine dependence, unspecified, uncomplicated
CPT/HCPCS: 99283